=== PATIENT | male | born 1995 | race Caucasian/White ===

== ENCOUNTER 2019-09-19 06:06 | Emergency (ER) | payer SELFPAY ==
--- NOTE | ~2019-09-19 | XR_ITS ---
EXAMINATION: XR chest 1V DATE: 09/19/2019 07:10 INDICATION: Upper back pain. TECHNIQUE: Expiration frontal view of the chest was obtained. COMPARISON: None FINDINGS: Mildly decreased lung volume with bronchovascular crowding in the lower lung zones consistent with ex piratory phase of imaging. No focal airspace opacities, pulmonary edema, pleural effusion or pneumoth orax. The cardiomediastinal silhouette is normal. Visualized bones and soft tissues are unremarkable. IMPRESSION: 1. Normal expiratory chest radiograph. Reviewed, dictated and finalized at location [facility]
--- NOTE | ~2019-09-19 | XR_ITS ---
EXAMINATION: XR chest 2V DATE: 09/19/2019 07:09 INDICATION: Abrupt onset right back pain TECHNIQUE: Respiratory PA and lateral views of the chest were obtained. COMPARISON: None FINDINGS: The lungs are clear with no focal airspace opacities, pulmonary edema, pleural effusion or pneumothor ax. The cardiomediastinal silhouette is normal. Visualized bones and soft tissues are unremarkable. IMPRESSION: 1. Normal chest radiograph. Reviewed, dictated and finalized at location [facility] IMPRESSION: 1. Normal chest radiograph.
[2019-09-19 06:11] VITALS: BP 153/87; PULSE 105; RESP 18; TEMP 36.3; O2SAT 97
--- NOTE | 2019-09-19 06:55 | ED.BACK ---
HPI - Back Pain/Injury General Chief Complaint: Back Pain/Injury Stated Complaint: Back and neck pain Time Seen by Provider: 09/19/19 07:13 Source: patient Mode of arrival: ambulatory History of Present Illness HPI Narrative: 24 y.o. began having right back pain at 1 AM which worsened at 5 AM. The pain is dull, persistent, made worse by laying supine, better by sitting up; not affected by neck or arm movement. Pain is moderate in intensity. No previous hx. of the same. There was also left lower ant. chest pain yesterday; none today. He denies S.O.B. Related Data Allergies Allergy/AdvReac Type Severity Reaction Status Date / Time No Known Allergies Allergy Verified 09/19/19 06:16 Review of Systems Constitutional: Constitutional: Reports no additional constitutional complaints ENT: Denies nasal congestion and Denies sore throat Cardiovascular: Cardiovascular: Reports no additional cardiovascular complaints Respiratory: Respiratory: Reports no additional respiratory complaints, Denies cough and Denies dyspnea Gastrointestinal: Gastrointestinal: Denies abdominal pain, Reports diarrhea (several episodes yesterday. ) and Denies nausea Musculoskeletal: Musculoskeletal: Reports no additional musculoskeletal complaints [facility] Past Medical History Medical History (Updated 09/20/19 @ 00:00 by Glen Lal) No significant medical problems Patient denies significant medical history Surgical History Surgical History (Updated 09/19/19 @ 07:40 by Naveed Sosa MD) No history of previous surgery Family History Family History (Updated 09/19/19 @ 07:41 by Naveed Sosa MD) Mother No problems noted. Father No problems noted. Social History Social History (Updated 09/19/19 @ 06:16 by Omayra Fisher RN) Smoking packs per day: 0.5 Smoking cigarettes per day: 10.0 Smoking status: Current every day smoker Tobacco type: cigarettes Substance use: current Substance use type: marijuana Exam Const: General: no acute distress Orientation/consciousness: patient oriented x3 HENMT: Mouth: Yes Normal oral and palatal mucosa present Neck: Neck: no lymphadenopathy Chest: Chest palpation & inspection: normal inspection of the chest Other: no chest wall tenderness Identifies right upper trapezius, right lateral neck and rhomboid region where he has pain. No tenderness on exam. No skin changes. Resp: Auscultation: clear to auscultation bilaterally, no rales and no wheezes Cardio: Rate: regular rate Rhythm: regular rhythm Back/Spine/Pelvis: Other: full painless neck ROM. Neuro: General: no meningeal signs and no focal motor deficits Other: right u.e. neurovascular intact. Extrem: General: normal to inspection Other: Full painless shoulder ROM. Course Vital Signs Vital signs: Vital Signs Temperature 36.3 C L 09/19/19 06:11 Pulse Rate 105 H 09/19/19 06:11 Respiratory Rate 18 09/19/19 06:11 Blood Pressure 153/87 H 09/19/19 06:11 Pulse Oximetry 97 09/19/19 06:11 Temperature 36.3 C L 09/19/19 06:11 Pulse Rate 75 09/19/19 07:46 Respiratory Rate 20 09/19/19 07:46 Blood Pressure 135/82 09/19/19 07:46 Pulse Oximetry 97 09/19/19 07:46 MDM - Back Pain/Injury MDM Narrative Medical decision making narrative: muscle strain, myalgia from viral illness, shingles, right pneumothorax. Lab Data Labs: Chest X ray on my reading shows no cardiopul. abn. Radiology IMPRESSION: 1. Normal chest radiograph. Discharge Plan Discharge Clinical Impression: Muscle strain Patient Disposition: Home, Self-Care Condition: Stable Instructions: Thoracic Back Strain (ED) Prescriptions: New ketorolac 10 mg tablet 10 mg PO TID PRN (Reason: pain) 5 Days Qty: 15 RF: 0 cyclobenzaprine 10 mg tablet 10 mg PO TID PRN (Reason: muscle spasm) Qty: 15 RF: 0 Follow-up/Referrals: Yon Wray MD [Primary Care Provider] - Ti
[2019-09-19] MEDS: IBUPROFEN 400 MG TABLET PO (06:58)
--- NOTE | 2019-09-19 07:33 | ED.GENADULT ---
HPI - General Adult General Chief complaint: Back Pain/Injury Stated complaint: Back and neck pain Time Seen by Provider: 09/19/19 07:13 Source: patient Mode of arrival: ambulatory Limitations: no limitations History of Present Illness HPI narrative: [place] is a very pleasant 24-year-old male patient. He states that he woke up around midnight with some pain to the right lower posterior ribs and to the right lower cervical paraspinal /deltoid area. There is no history of trauma. He states that he did not do any kind of strenuous activity in the last 2 or 3 days. He has not had similar pains in the past. He describes the pain as sharp and intermittent. Certain kinds of twisting motions make the pain slightly worse. There is no direct tenderness to the neck or the thoracic or lumbar spine. He rates the pain at 7 or 8. When he lies still he does not appear to be in pain. He denies any cough or fever. No history of any congestion runny nose. No abdominal pain. He had a couple of loose stools yesterday but none today. MD complaint: Pain right lower posterior ribs, right lower cervical paraspinal area pain Onset (ago): hour(s) (7 hours ago) Location: chest ( See HPI narrative) Radiation: non-radiation Severity: moderate Severity scale (1-10): 7 Quality: sharp Pain Consistency: intermittent Relieving factors: none Exacerbating factors: movement Associated symptoms: denies other symptoms and other ( see HPI narrative) Treatments prior to arrival: none Related Data Allergies Allergy/AdvReac Type Severity Reaction Status Date / Time No Known Allergies Allergy Verified 09/19/19 06:16 Review of Systems Review of Systems: All systems reviewed & are unremarkable except as noted in HPI and below Constitutional: Constitutional: Reports no additional constitutional complaints, Denies chills and Denies fever(s) Eyes: Eyes: Reports as per HPI and Denies change in vision ENT: Reports system reviewed and no additional complaints, except as documented, Denies dysphagia, Denies vertigo, Denies dizziness, Denies epistaxis, Denies nasal congestion and Denies sore throat Cardiovascular: Cardiovascular: Reports as per HPI and Denies chest pain Comments: no chest pain as such. Has pain to the right lower posterior ribs. Please refer to HPI narrative. Respiratory: Respiratory: Reports no additional respiratory complaints, Denies chest congestion, Denies cough, Denies dyspnea and Denies wheezing Gastrointestinal: Gastrointestinal: Reports as per HPI, Reports no additional gastrointestinal complaints, Denies abdominal pain, Reports diarrhea, Denies nausea and Denies vomiting Genitourinary: Genitourinary: Reports no additional male genitourinary complaints, Denies hematuria and Denies dysuria Musculoskeletal: Comments: Please refer to HPI narrative Integumentary/Breasts: Skin/Breast: Reports system reviewed and no additional complaints, except as docu, Denies erythema and Denies rash Neurologic: Reports system reviewed and no additional complaints, except as documented, Denies vertigo, Denies dizziness, Denies syncope, Denies headache(s), Denies focal weakness, Denies numbness and Denies weakness Psychiatric: Psychiatric: Reports no additional psychiatric complaints, Denies anxiety and Denies depression Endocrine: Endocrine: Reports no additional endocrine complaints, Denies polydipsia and Denies polyuria Hematologic/Lymphatic: Hematologic/Lymphatic: Reports no additional hematologic/lymphatic complaints, Denies as per HPI and Denies easy bleeding Allergic/Immunologic: Allergic/Immunologic: Reports no additional allergic/immunologic complaints, Denies lip swelling and Denies tongue swelling [facility] Past Medical History Medical History (Updated 09/19/19 @ 07:51 by Naveed Sosa MD) No significant medical problems Patient denies significant medical history Surgical History Surgical History (Updated 09/19/19 @ 07:40 by Naveed Friedman
[2019-09-19 07:46] VITALS: BP 135/82; PULSE 75; RESP 20; O2SAT 97
== END 2019-09-19 07:55 | disposition home or self-care (01) ==
PROVIDERS: Emergency Provider Surgery; PCP Family Medicine
DX: S29.012A Strain of muscle and tendon of back wall of thorax, initial encounter (principal)
CPT/HCPCS: 71045; 71046; 99283; A9270

== ENCOUNTER 2021-04-24 02:32 | Emergency (ER) | payer BC, SELFPAY ==
[2021-04-24 02:40] VITALS: BP 145/81; PULSE 89; RESP 20; TEMP 36.4; O2SAT 99
--- NOTE | 2021-04-24 02:53 | ED.SKABFB ---
HPI - Skin/Abscess/Foreign Bdy General Chief complaint: Skin/Abscess/Foreign Body Stated complaint: Possible abscess under right arm Time Seen by Provider: 04/24/21 02:53 Source: patient Mode of arrival: ambulatory Limitations: no limitations History of Present Illness HPI narrative: 25-year-old man comes in today complaining of pain swelling and redness under his right arm that started a little over week ago. Patient states he had some ingrown hairs which popped but the pain and swelling continued to grow. He was seen another ER and placed on cephalexin 2 days ago. His symptoms have only worsened. He has had a temperature as high as 99.1? F and his family noticed that his blood pressure has been elevated. complaint: abscess/boil Onset (ago): week(s) (1) Location: RUE Severity: severe Quality: sharp Pain Consistency: constant Relieving factors: none Exacerbating factors: palpation Context: recent antibiotic Treatments prior to arrival: attempted to drain pus at home, antibiotic and NSAID Related Data Home Medications Medication Instructions Recorded Confirmed cephalexin 500 mg PO BID 04/24/21 04/24/21 Allergies Allergy/AdvReac Type Severity Reaction Status Date / Time No Known Allergies Allergy Verified 09/19/19 06:16 Review of Systems Review of Systems: All systems reviewed & are unremarkable except as noted in HPI and below Constitutional: Constitutional: Reports chills and Reports fever(s) ENT: Denies nasal congestion and Denies sore throat Cardiovascular: Cardiovascular: Reports chest pain and Denies radiating jaw, neck or arm pain Respiratory: Respiratory: Denies cough and Denies dyspnea Gastrointestinal: Gastrointestinal: Denies abdominal pain, Reports nausea and Denies vomiting Musculoskeletal: Musculoskeletal: Denies back pain, Reports arthralgias (Shoulder and neck) and Denies joint swelling Integumentary/Breasts: Skin/Breast: Denies pruritus, Reports erythema and Denies rash Neurologic: Denies vertigo, Denies dizziness and Denies syncope Hematologic/Lymphatic: Hematologic/Lymphatic: Denies easy bleeding and Denies easy bruising PMFSH Past Medical History Medical History No significant medical problems Patient denies significant medical history Surgical History Surgical History No history of previous surgery Family History Family History (Updated 09/19/19 @ 07:41 by Naveed SosaMD) Mother No problems noted. Father No problems noted. Social History Social History Smoking packs per day: 0.5 Smoking cigarettes per day: 10.0 Smoking status: Current every day smoker Tobacco type: cigarettes Substance use: current Substance use type: marijuana Exam Const: General: healthy appearing and alert Orientation/consciousness: patient oriented x3 Other: Moderate acute distress. Chest: Chest palpation & inspection: normal inspection of the chest Resp: Effort & Inspection: normal respiratory effort and not labored Auscultation: clear to auscultation bilaterally, no rales, no rhonchi and no wheezes Cardio: Rate: regular rate Rhythm: regular rhythm Heart sounds: no murmurs Skin: General skin exam: normal color, no jaundice and no pallor Rashes: no rashes Other: Tender mobile 3 x 4 cm subcutaneous right axillary mass which is fluctuant. There is mild overlying erythema. There is a smaller, mildly tender and mildly erythematous area distal which is approximately 2 cm in greatest dimension. Underlying this is a small subcutaneous mass. Neuro: General: patient oriented x3, moves all extremities, no focal motor deficits and CN's II-XI intact bilaterally Speech: normal speech Gait exam (Neuro): Normal gait present Extrem: General: normal to inspection and no clubbing, cyanosis or kaleb
[2021-04-24] MEDS: HYDROcodone/acetaminophen (*CRX) 5-325 MG TABLET 1 TAB PO (03:05)
[2021-04-24 03:48] VITALS: BP 133/78; PULSE 88; TEMP 36.4; O2SAT 98
== END 2021-04-24 03:55 | disposition home or self-care (01) ==
PROVIDERS: Emergency Provider Emergency Medicine; PCP Family Medicine
DX: L02.411 Cutaneous abscess of right axilla (principal)
CPT/HCPCS: 10061; 87070; 87077; 87186; 87205; 99283; A9270

== ENCOUNTER 2021-09-01 03:40 | Emergency (ER) | payer BC, SELFPAY ==
[2021-09-01 03:40] VITALS: BP 146/82; PULSE 98; RESP 16; TEMP 36.3; O2SAT 95
--- NOTE | 2021-09-01 03:59 | ED.WOUNDLAC ---
HPI - Wound/Laceration General Chief Complaint: Wound/Laceration Stated Complaint: Laceration on Right Pinky Finger Time Seen by Provider: 09/01/21 03:59 Source: patient Mode of arrival: ambulatory Limitations: no limitations History of Present Illness HPI narrative: this is a 26-year-old male that presents with a laceration to the right anterior 5th finger well-approximated currently no bleeding has no numbness or tingling does have pain with palpation as good range of motion. Patient is up-to-date with his tetanus, no fever chills. Onset (ago): hour(s) Extremity Location: Right: hand ( 5th anterior finger) Place: home Patient tetanus UTD: Yes Context: accidental Associated symptoms: pain Related Data Home Medications Medication Instructions Recorded Confirmed No Home Medications 09/01/21 09/01/21 Allergies Allergy/AdvReac Type Severity Reaction Status Date / Time No Known Allergies Allergy Verified 09/01/21 03:51 Review of Systems Review of Systems: All systems reviewed & are unremarkable except as noted in HPI and below PMFSH Past Medical History Medical History No significant medical problems Patient denies significant medical history Surgical History Surgical History No history of previous surgery Family History Family History Mother No problems noted. Father No problems noted. Social History Social History Smoking packs per day: 0.5 Smoking cigarettes per day: 10.0 Smoking status: Current every day smoker Tobacco type: cigarettes Substance use: current Substance use type: marijuana Exam Const: General: no acute distress and alert Orientation/consciousness: patient oriented x3 HENMT: Head: normal to inspection Eyes: Conjunctivae: conjunctivae normal Pupils: Equal, round and reactive pupils present EOM: EOMs intact bilaterally Neck: Neck: normal visual inspection Chest: Chest palpation & inspection: normal inspection of the chest Resp: Effort & Inspection: normal respiratory effort Cardio: Rate: regular rate Rhythm: regular rhythm GI: GI Palp: Yes Soft to palpation Urinary Catheter: Urinary Catheter: patent and draining Back/Spine/Pelvis: Back: no CVA tenderness Skin: General skin exam: normal color Rashes: no rashes Other: Well-approximated laceration anterior 5th finger on the right Neuro: General: patient oriented x3 and moves all extremities Extrem: General: normal to inspection and no pedal edema Psych: Mental Status: mental status grossly normal Course Course Emergency Course: Dermabond was placed on the laceration site patient tolerated procedure well. Procedures Laceration Laceration 1: Date: 09/01/21 Time: 04:02 Site: hand Side (If applicable): right Size (cm): 2 Description: linear ====== Skin Level ====== Skin layer closed with: dermabond ====== Subcutaneous Layer ====== ====== Muscle Layer ====== ====== Tendon Layer ====== Critical Care Time Critical Care Time Critical Care Time: No Discharge Plan Discharge Clinical Impression: Laceration Patient Disposition: Home, Self-Care Condition: Stable Instructions: Antibiotic Form, Skin Adhesive Care (ED), Laceration (ED) Additional Instructions: Can take Tylenol or Motrin for pain and follow-up primary care physician if symptoms persist or worsen. Prescriptions: No Action No Home Medications RF: 0 Follow-up/Referrals: Yon Wray MD [Primary Care Provider] - Time of Disposition: 04:02
== END 2021-09-01 04:15 | disposition home or self-care (01) ==
PROVIDERS: Emergency Provider Emergency Medicine; PCP Family Medicine
DX: S61.216A Laceration without foreign body of right little finger without damage to nail, initial encounter (principal); W45.8XXA Other foreign body or object entering through skin, initial encounter
CPT/HCPCS: 12001; 99282

== ENCOUNTER 2023-07-10 23:20 | Emergency (ER) | payer SELFPAY ==
--- NOTE | 2023-07-10 23:26 | ED.GENADULT ---
HPI - General Adult General Chief complaint: Urogenital-Male Stated complaint: dehydration, dark urine, leg cramp Time Seen by Provider: 07/10/23 23:25 Source: patient Mode of arrival: ambulatory Limitations: no limitations History of Present Illness HPI narrative: patient is a 28-year-old male with not feeling well and having cramps of his legs for the past few days. Patient said he has not been doing well drinking water and his urine has been dark lately. He said he has been sleeping a lot lately. Onset (ago): day(s) (3) Location: lower extremity ( Cramps in both legs) Radiation: non-radiation Severity: moderate Severity scale (1-10): 5 Quality: aching Pain Consistency: intermittent Relieving factors: none Exacerbating factors: none Associated symptoms: malaise and weakness Treatments prior to arrival: none Related Data Home Medications Medication Instructions Recorded Confirmed No Home Medications 09/01/21 07/10/23 Allergies Allergy/AdvReac Type Severity Reaction Status Date / Time No Known Allergies Allergy Verified 07/10/23 23:32 Review of Systems Review of Systems: All systems reviewed & are unremarkable except as noted in HPI and below Constitutional: Constitutional: Reports no additional constitutional complaints Eyes: Eyes: Reports no additional eye complaints ENT: Reports system reviewed and no additional complaints, except as documented Cardiovascular: Cardiovascular: Reports no additional cardiovascular complaints Respiratory: Respiratory: Reports no additional respiratory complaints Gastrointestinal: Gastrointestinal: Reports no additional gastrointestinal complaints Genitourinary: Genitourinary: Reports no additional male genitourinary complaints Musculoskeletal: Musculoskeletal: Reports no additional musculoskeletal complaints Integumentary/Breasts: Skin/Breast: Reports system reviewed and no additional complaints, except as docu Neurologic: Reports system reviewed and no additional complaints, except as documented Psychiatric: Psychiatric: Reports no additional psychiatric complaints Endocrine: Endocrine: Reports no additional endocrine complaints Hematologic/Lymphatic: Hematologic/Lymphatic: Reports no additional hematologic/lymphatic complaints Allergic/Immunologic: Allergic/Immunologic: Reports no additional allergic/immunologic complaints PMFSH Past Medical History Medical History No significant medical problems Patient denies significant medical history Surgical History Surgical History No history of previous surgery Family History Family History Mother No problems noted. Father No problems noted. Social History Social History Smoking packs per day: 0.5 Smoking cigarettes per day: 10.0 Smoking status: Current every day smoker Tobacco type: cigarettes Substance use: current Substance use type: marijuana Exam Const: General: healthy appearing Nutritional Appearance: well nourished Orientation/consciousness: patient oriented x3 HENMT: Head: normal to inspection Ears: external ears normal Face/Nose/Sinus: Normal external nose present Eyes: Conjunctivae: conjunctivae normal Pupils: Equal, round and reactive pupils present EOM: EOMs intact bilaterally Neck: Neck: normal visual inspection Chest: Chest palpation & inspection: normal inspection of the chest Resp: Effort & Inspection: normal respiratory effort Auscultation: clear to auscultation bilaterally Cardio: Rate: regular rate Rhythm: regular rhythm Heart sounds: no murmurs GI: Inspection: non-distended GI Palp: Yes Soft to palpation, No Tenderness to palpation present (GI) and No Guarding due to palpation present (GI) Auscultation: normal bowel sounds
[2023-07-10 23:34] VITALS: BP 176/117; PULSE 141; RESP 20; TEMP 36.9; O2SAT 96
[2023-07-10 23:41] LABS: Basophils Absolute Auto 0.02 K/mm3 (0.00-0.10); Basophils Percent Auto 0.2 % (0.0-1.0); Hematocrit 46.2 % (40.0-54.0); Hemoglobin 15.2 g/dL (14.0-18.0); Immature Granulocyte Absolute 0.02 K/mm3 (0.00-0.00); Immature Granulocyte Percent A 0.2 % (0.0-0.0); Lymphocytes Absolute Auto 1.64 K/mm3 (1.10-4.50); Lymphocytes Percent Auto 16.1 % (18.0-42.0); Mean Corpuscular HGB Conc 32.9 g/dL (32.0-36.0); Mean Corpuscular Hemoglobin 28.9 pg (27.0-31.0); Mean Corpuscular Volume 87.8 fL (78.0-102.0); Mean Platelet Volume 9.7 fl (8.7-11.0); Monocytes Absolute Auto 1.01 K/mm3 (0.10-0.90); Monocytes Percent Auto 9.9 % (2.0-11.0); Neutrophils Absolute Auto 7.5 K/mm3 (1.7-7.2); Neutrophils Percent Auto 73.6 % (50.0-70.0); Platelet Count Result 257 K/mm3 (150-420); Red Blood Count 5.26 M/mm3 (4.70-6.10); Red Cell Distribution Width 13.6 % (11.6-14.4); White Blood Count 10.2 K/mm3 (4.8-10.8)
[2023-07-11 00:01] LABS: Alanine Aminotransferase 49 U/L (16-63); Albumin Level 4.4 g/dL (3.4-5.0); Alkaline Phosphatase 91 U/L (46-116); Anion Gap 7 mmol/L (8-16); Aspartate Amino Transferase 20 U/L (15-37); Bilirubin,Total 0.6 mg/dL (0.00-1.00); Blood Urea Nitrogen 22 mg/dL (7-18); Calcium 9.1 mg/dL (8.5-10.1); Carbon Dioxide 31 mmol/L (21-32); Chloride 98 mmol/L (98-108); Creatine Kinase 173 U/L (39-308); Estimated Glomerular Filt Rate 57; Glucose 103 mg/dL (70-99); Magnesium 2.3 mg/dL (1.8-2.4); Osmolality Calculated 285 mOsm/kg (285-295); Potassium 3.1 mmol/L (3.5-5.1); Sodium 136 mmol/L (136-145); Total Protein 8.4 g/dL (6.4-8.2)
[2023-07-11 00:03] LABS: Ethanol < 3 mg/dL (0-6)
[2023-07-11 00:04] LABS: Troponin I 84.3 ng/L (0.00-60.4)
--- NOTE | 2023-07-11 00:04 | ECG_ITS ---
Measurements Intervals [place] Rate: 117 P: 66 AL: 152 QRS: 50 QRSD: 85 T: 36 QT: 298 QTc: 416 Interpretive Statements SINUS TACHYCARDIA ABNORMAL RHYTHM ECG NO PREVIOUS ECG AVAILABLE FOR COMPARISON Electronically Signed On 07-11-2023 9:13:09 SERVICE PROVIDER by Cate Moise M.D.
[2023-07-11] MEDS: SODIUM CHLORIDE 0.9% IV 1,000 ML 999 ML IV CONT (00:15)
[2023-07-11 00:28] VITALS: BP 174/112; PULSE 118; RESP 20; O2SAT 98
[2023-07-11] MEDS: POTASSIUM CHLORIDE 20 MEQ ER TABLET PO (00:39)
[2023-07-11 01:11] VITALS: BP 138/77; PULSE 114; RESP 18; O2SAT 99
[2023-07-11 01:50] VITALS: BP 139/74; PULSE 106; RESP 18; O2SAT 99
== END 2023-07-11 01:58 | disposition left against medical advice (07) ==
PROVIDERS: Emergency Provider Emergency Medicine
DX: E86.0 Dehydration (principal); R25.2 Cramp and spasm; R79.89 Other specified abnormal findings of blood chemistry; N17.9 Acute kidney failure, unspecified; F17.210 Nicotine dependence, cigarettes, uncomplicated
CPT/HCPCS: 36415; 80053; 80307; 82550; 83735; 84484; 85025; 93005; 96360; 99284; A9270; J7030